=== PATIENT | female | born 1975 ===

== ENCOUNTER 2025-04-18 09:29 | Outpatient (CLI) | payer OTHER | END 2025-04-18 09:30 | disposition home or self-care (01) | LOC: SONOGRAMA 09:29 | PROVIDERS: ATTEND Pathology Anatomic Pathology & Clinical Pathology | DX: D34 Benign neoplasm of thyroid gland (principal); E07.89 Other specified disorders of thyroid; E04.2 Nontoxic multinodular goiter ==